=== PATIENT | male | born 1990 | race Caucasian/White ===

== ENCOUNTER 2021-05-21 20:51 | Emergency (ER) | payer OTHER ==
[2021-05-22 01:27] LABS: Basophils # (A) 0.1 k/uL (0-0.2); Basophils % (A) 0 %; Eosinophils # (A) 0.1 k/uL (0-0.7); Eosinophils % (A) 1 %; HCT 46.5 % (39.0-53.0); HGB 15.7 gm/dL (13.0-17.5); Lymphocytes # (A) 2.3 k/uL (1.0-4.8); Lymphocytes % (A) 19 %; MCH 30.7 pg (25.0-35.0); MCHC 33.7 g/dL (31.0-37.0); MCV 91.1 fL (80.0-100.0); Mean Platelet Volume 9.8; Monocytes # (A) 0.5 k/uL (0-1.0); Monocytes % (A) 4 %; Neutrophils % (A) 74 %; Platelet Count 367 k/uL (150-450); RDW 13.6 % (11.5-15.5); WBC 12.1 k/uL (3.8-10.6)
[2021-05-22] MEDS ORDERED: ONDANSETRON 4 MG/2 ML VIAL IVP STA (01:37)
[2021-05-22] MEDS ORDERED: PANTOPRAZOLE 40 MG/10 ML VIAL IVP STA (01:37)
[2021-05-22] MEDS ORDERED: SODIUM CHLORIDE 0.9% 1,000 ML IV ONE ×2 (01:38→02:52)
[2021-05-22 01:40] LABS: ALT 26 U/L (4-49); AST 24 U/L (17-59); African American GFR (CKD) >90 (>60 ml/min/1.73 sqM); Albumin 4.8 g/dL (3.5-5.0); Alkaline Phosphatase 139 U/L (38-126); Anion Gap 15 mmol/L; Blood Urea Nitrogen 8 mg/dL (9-20); Calcium 9.1 mg/dL (8.4-10.2); Carbon Dioxide 20 mmol/L (22-30); Chloride 102 mmol/L (98-107); Glucose 87 mg/dL (74-99); Non-African American GFR(CKD) >90 (>60 ml/min/1.73 sqM); Potassium 3.5 mmol/L (3.5-5.1); Sodium 137 mmol/L (137-145)
[2021-05-22 01:41] LABS: INR 0.9 (<1.2); Partial Thromboplastin Time 26.8 sec (22.0-30.0); Prothrombin Time 10.4 sec (9.0-12.0)
--- NOTE | 2021-05-22 02:22 | ED ---
Nausea/Vomiting/Diarrhea HPI - General Chief complaint: Nausea/Vomiting/Diarrhea Stated complaint: Blood in Vomit Time Seen by Provider: 05/22/21 01:23 Source: patient, RN notes reviewed Mode of arrival: ambulatory Limitations: no limitations - History of Present Illness Initial comments: This is a pleasant 31-year-old male who presents emergency rectum pain with nausea, vomiting, diarrhea. This was going on since Friday. Patient said carisa ral episodes of vomiting and diarrhea today. He states that the very end of his vomitus he noticed a small amount of brown vomitus which he describes as coffee- ground. Patient believes this is blood. Patient states this is happened about 6 times in the past couple years. Patient has never had any workup for this. He denies any blood in the stool. Patient does admit to frequent alcohol use an d binging. However he has never gone through withdrawals. Patient states he is able to stop for 5 days at a time without difficulty. Patient does have some tenderness and discomfort in the epigastric area. No headache, no fever or chills, no changes in vision or hearing, no sore throat or difficulty with speech, no neck pain, no chest pain or shortness of breath, no abdominal pain, no nausea or vomiting, no changes in urination or bowel movements, no numbness or tingling, no extremity pain, no skin rashes or lesions. Note that this patient states she's had problems with shortness of breath since February when he had COVID-19. Patient states that he has Covid long-haul syndro me. Patient denies any use of NSAIDs. Last drink of alcohol was . MD complaint: nausea, vomiting, diarrhea - Related Data Previous Rx's Medication Instructions Recorded Dicyclomine HCl [Bentyl] 20 mg PO QID PRN #15 tab 02/14/14 Famotidine [Pepcid] 20 mg PO BID #30 tablet 02/14/14 Omeprazole [PriLOSEC] 20 mg PO DAILY #30 cap 05/22/21 Ondansetron Odt [Zofran Odt] 4 mg PO Q6HR PRN #20 tab 05/22/21 Allergies Allergy/AdvReac Type Severity Reaction Status Date / Time cat dander Allergy Wheezing Verified 05/21/21 22:52 egg Allergy Rash/Hives Verified 05/21/21 22:52 Review of Systems ROS Statement: Those systems with pertinent positive or pertinent negative responses have been documented in the HPI. ROS Other: All systems not noted in ROS Statement are negative. Past Medical History Past Medical History: No Reported History History of Any Multi-Drug Resistant Organisms: None Reported Past Surgical History: No Surgical Hx Reported Past Psychological History: Anxiety, Depression, Panic Disorder Past Alcohol Use History: None Reported Past Drug Use History: None Reported General Exam - General Exam Comments Initial Comments: Patient mild distress secondary to nausea and vomiting. Does not appear to be overtly ill or toxic. Limitations: no limitations General appearance: alert, in no apparent distress Head exam: Present: atraumatic, normocephalic, normal inspection Eye exam: Present: normal appearance, PERRL, EOMI. Absent: scleral icterus, conjunctival injection, periorbital swelling ENT exam: Present: normal exam, normal oropharynx, mucous membranes moist. Absent: mucous membranes dry Neck exam: Present: normal inspection, full ROM. Absent: tenderness, meningismus, lymphadenopathy Respiratory exam: Present: normal lung sounds bilaterally. Absent: respiratory distress, wheezes, rales, rhonchi, stridor Cardiovascular Exam: Present: regular rate, normal rhythm, normal heart sounds. Absent: systolic murmur, diastolic murmur, rubs, gallop, clicks GI/Abdominal exam: Present: soft, tenderness (Tenderness in the epigastric area), normal bowel sounds. Absent: distended, guarding, rebound, rigid Rectal exam: Present: normal inspection (Chaperoned rectal examination), normal rectal tone, normal prostate. Absent: black stool (Brown stool noted on examination), bloody stool, fecal impaction, hemorrhoids, mass, tenderness, prostate tenderness, prostate enlargement Extremities exam: Present: normal inspection, full ROM, normal capillary refill. Absent: tenderness, pedal edema, joint swelling, calf tenderness Back exam: Present: normal inspection Neurological exam: Present: alert, oriented X3, CN II-XII intact Psychiatric exam: Present: normal affect, normal mood Skin exam: Present: warm, dry, intact, normal color. Absent: rash Course Vital Signs 05/21/21 05/22/21 22:47 04:18 Temperature 97.1 F L 98.3 F Pulse Rate 90 100 Respiratory 16 18 Rate Blood Pressure 138/90 108/65 O2 Sat by Pulse 98 97 Oximetry - Reevaluation(s) Reevaluation #1: 05/22/21 0230 Medical record is reviewed Symptoms are improved here in the emergency department Patient is informed of results and questions answered Patient symptoms of nausea and vomiting have improved. Unfortunately the patient had a reaction to the Compazine. His looks as though the patient is having active seizure. Patient was given Benadryl and Cogentin. Symptoms improved prior to discharge. Medical Decision Making - Medical Decision Making Patient presentation most consistent with gastroenteritis with gastritis. Patient may have had a small amount of hematemesis. However he does not appear to be anemic. Hemoglobin is normal. Plan a general workup, antiemetics, proton pump inhibitor, patient will likely be able to be discharged. NOTE despite what the triage note says the patient states he does not drink alcohol daily. He states he binges every few days. Patient has gone several days without withdrawal symptoms. In fact, patient has never had withdrawal symptoms. Patient also reports only subjective cavagram emesis. Patient states that the very end of his vomitus he noticed a small amount of brown material. He assumed this was blood. Patient's Hemoccult was negative. Patient's hemoglobin was 15.7. Hematocrit 46.5. Mild elevation of white blood cell count at 12,100, likely related to vomiting/inflammation. Patient's hepatic enzymes were normal aside from an alkaline phosphatase mildly elevated at 139. Carbon dioxide was 20. Anion gap 15. The case was discussed in detail with ED attending physician. Presentation, findings, treatment plan discussed in detail. Patient was told to return to the ER for any signs or symptoms worsen. Told to return immediately if any other problems arise. All questions answered. Treatment plan discussed. Patient in agreement Every effort has been made to ensure accuracy of this dictation. However, due to the limitations of electronic medical records and dictation devices, errors in charting still occur. This patient was endorsed to the ED attending physician prior to me leaving. Disposition was after ED physician evaluation. - Lab Data Result diagrams: 05/22/21 00:53 05/22/21 00:53 Lab Results 05/22/21 05/22/21 05/22/21 Range/Units 00:47 00:49 00:53 WBC 12.1 H (3.8-10.6) k/uL RBC 5.10 (4.30-5.90) m/uL Hgb 15.7 (13.0-17.5) gm/dL Hct 46.5 (39.0-53.0) % MCV 91.1 (80.0-100.0) fL MCH 30.7 (25.0-35.0) pg MCHC 33.7 (31.0-37.0) g/dL RDW 13.6 (11.5-15.5) % Plt Count 367 (150-450) k/uL MPV 9.8 Neutrophils % 74 % Lymphocytes % 19 % Monocytes % 4 % Eosinophils % 1 % Basophils % 0 % Neutrophils # 9.0 H (1.3-7.7) k/uL Lymphocytes # 2.3 (1.0-4.8) k/uL Monocytes # 0.5 (0-1.0) k/uL Eosinophils # 0.1 (0-0.7) k/uL Basophils # 0.1 (0-0.2) k/uL PT (9.0-12.0) sec INR (<1.2) APTT (22.0-30.0) sec Sodium (137-145) mmol/L Potassium (3.5-5.1) mmol/L Chloride (98-107) mmol/L Carbon Dioxide (22-30) mmol/L Anion Gap mmol/L BUN (9-20) mg/dL Creatinine (0.66-1.25) mg/dL Est GFR (CKD-EPI)AfAm (>60 ml/min/1.73 sqM) Est GFR (CKD-EPI)NonAf (>60 ml/min/1.73 sqM) Glucose (74-99) mg/dL Calcium (8.4-10.2) mg/dL Total Bilirubin (0.2-1.3) mg/dL AST (17-59) U/L ALT (4-49) U/L Alkaline Phosphatase (38-126) U/L Total Protein (6.3-8.2) g/dL Albumin (3.5-5.0) g/dL Lipase (23-300) U/L Stool Occult Blood (Negative) Blood Type B Positive Blood Type Confirm B Positive Blood Type Recheck No Previous Record Bld Type Recheck Status CABO Indicated Antibody Screen NEGATIVE Spec Expiration Date 05/25/2021 - 234805/22/21 05/22/2105/22/22 Range/Units 00:53 00:53 00:53 WBC (3.8-10.6) k/uL RBC (4.30-5.90) m/uL Hgb (13.0-17.5) gm/dL Hct (39.0-53.0) % MCV (80.0-100.0) fL MCH (25.0-35.0) pg MCHC (31.0-37.0) g/dL RDW (11.5-15.5) % Plt Count (150-450) k/uL MPV Neutrophils % % Lymphocytes % % Monocytes % % Eosinophils % % Basophils % % Neutrophils # (1.3-7.7) k/uL Lymphocytes # (1.0-4.8) k/uL Monocytes # (0-1.0) k/uL Eosinophils # (0-0.7) k/uL Basophils # (0-0.2) k/uL PT 10.4 (9.0-12.0) sec INR 0.9 (<1.2) APTT 26.8 (22.0-30.0) sec Sodium 137 (137-145) mmol/L Potassium 3.5 (3.5-5.1) mmol/L Chloride 102 (98-107) mmol/L Carbon Dioxide 20 L (22-30) mmol/L Anion Gap 15 mmol/L BUN 8 L (9-20) mg/dL Creatinine 0.88 (0.66-1.25) mg/dL Est GFR (CKD-EPI)AfAm >90 (>60 ml/min/1.73 sqM) Est GFR (CKD-EPI)NonAf >90 (>60 ml/min/1.73 sqM) Glucose 87 (74-99) mg/dL Calcium 9.1 (8.4-10.2) mg/dL Total Bilirubin 1.0 (0.2-1.3) mg/dL AST 24 (17-59) U/L ALT 26 (4-49) U/L Alkaline Phosphatase 139 H (38-126) U/L Total Protein 8.0 (6.3-8.2) g/dL Albumin 4.8 (3.5-5.0) g/dL Lipase 48 (23-300) U/L Stool Occult Blood (Negative) Blood Type Blood Type Confirm Blood Type Recheck Bld Type Recheck Status Antibody Screen Spec Expiration Date 05/22/21 Range/Units 01:46 WBC (3.8-10.6) k/uL RBC (4.30-5.90) m/uL Hgb (13.0-17.5) gm/dL Hct (39.0-53.0) % MCV (80.0-100.0) fL MCH (25.0-35.0) pg MCHC (31.0-37.0) g/dL RDW (11.5-15.5) % Plt Count (150-450) k/uL MPV Neutrophils % % Lymphocytes % % Monocytes % % Eosinophils % % Basophils % % Neutrophils # (1.3-7.7) k/uL Lymphocytes # (1.0-4.8) k/uL Monocytes # (0-1.0) k/uL Eosinophils # (0-0.7) k/uL Basophils # (0-0.2) k/uL PT (9.0-12.0) sec INR (<1.2) APTT (22.0-30.0) sec Sodium (137-145) mmol/L Potassium (3.5-5.1) mmol/L Chloride (98-107) mmol/L Carbon Dioxide (22-30) mmol/L Anion Gap mmol/L BUN (9-20) mg/dL Creatinine (0.66-1.25) mg/dL Est GFR (CKD-EPI)AfAm (>60 ml/min/1.73 sqM) Est GFR (CKD-EPI)NonAf (>60 ml/min/1.73 sqM) Glucose (74-99) mg/dL Calcium (8.4-10.2) mg/dL Total Bilirubin (0.2-1.3) mg/dL AST (17-59) U/L ALT (4-49) U/L Alkaline Phosphatase (38-126) U/L Total Protein (6.3-8.2) g/dL Albumin (3.5-5.0) g/dL Lipase (23-300) U/L Stool Occult Blood Negative (Negative) Blood Type Blood Type Confirm Blood Type Recheck Bld Type Recheck Status Antibody Screen Spec Expiration Date Disposition Clinical Impression: Alcoholic gastritis without mention of hemorrhage, Acute diarrhea Disposition: HOME SELF-CARE Instructions (If sedation given, give patient instructions): Acute Nausea and Vomiting (ED) Additional Instructions: Follow-up with your regular physician as directed. Return to the ER immediately if any symptoms worsen, new symptoms arise, or any other problems develop. Prescriptions: Omeprazole [PriLOSEC] 20 mg PO DAILY #30 cap Ondansetron Odt [Zofran Odt] 4 mg PO Q6HR PRN #20 tab PRN Reason: Nausea Is patient prescribed a controlled substance at d/c from ED?: No Referrals: Dorita Craig MD [STAFF PHYSICIAN] - 1-2 days Tarun Caraballo [STAFF PHYSICIAN] - 1-2 days Time of Disposition: 04:25
--- NOTE | 2021-05-22 02:27 | XR ---
EXAMINATION TYPE: XR abdomen acute w cxr DATE OF EXAM: 05/22/2021 COMPARISON: 02/14/2014 HISTORY: Abdominal pain TECHNIQUE: 4 views FINDINGS: Heart and mediastinum are normal. Lungs are clear. Diaphragm is normal. Bony thorax appears normal. There are no pathologic calcifications over the kidneys. IMPRESSION: Nonacute abdomen. No adverse change.
[2021-05-22] MEDS ORDERED: FAMOTIDINE 20 MG/2 ML VIAL IV STA (02:51)
[2021-05-22] MEDS ORDERED: PROCHLORPERAZINE INJ 10 MG/2 ML VIAL IVP STA (02:52)
[2021-05-22] MEDS ORDERED: diphenhydrAMINE 50 MG/ML 1 ML VIAL IVP STA (02:52)
[2021-05-22] MEDS ORDERED: LORazepam 2 MG/ML INJ IV STA (03:20)
[2021-05-22] MEDS ORDERED: BENZTROPINE 2 MG/2 ML AMP IV STA (03:21)
[2021-05-22 04:19] VITALS: BP 108/65; PULSE 100; RESP 18; TEMP 98.3
== END 2021-05-22 04:25 | disposition home or self-care (01) ==
LOC: EC 20:51
DX: K29.20 Alcoholic gastritis without bleeding (principal); R19.7 Diarrhea, unspecified; F41.9 Anxiety disorder, unspecified; F32.A Depression, unspecified
CPT/HCPCS: 99284; 96374; 96375 ×6; 96361 ×2; 36415; 86900; 86901; 80053; 83690; 85025; 85610; 85730; 86850; 82272; 74022; J2060; J1200; J0780; J0515; J2405; C9113